=== PATIENT | male | born 1950 | race Caucasian/White ===

== ENCOUNTER 2017-07-27 00:21 | Day surgery (SDC) | payer BC, MEDICARE ==
[~2017-07-27 00:21] MED LIST: ACET325 PO; AMLO10 PO; ARIP10 PO; BUPR150ER; CIPR500 PO; DOCU100 PO; Diflucan100 MG PO; ESCI10 PO; ESOM20 PO; FLUO10 PO; FLUT.05NI; GEMF600 PO; LAVAP17G PO; MELO7.5 PO; METF500 PO; METO25ER PO; NAPR500 PO; Norco 7.5-3251 EACH PO; PANT40 PO; PARO25 PO; PROC10 PO; Prednisone20 MG PO; QVAR7.3 G1 IH; SERT100 PO; TRAZ100 PO; [UNRECOGNIZED DRUG - OTHER] IV
== END 2017-07-27 17:46 | disposition home or self-care (01) ==
LOC: ATC 00:21
DX: G58.7 Mononeuritis multiplex (principal); M66.822 Spontaneous rupture of other tendons, left upper arm
CPT/HCPCS: 96365; 96366

== ENCOUNTER 2017-08-28 00:49 | Day surgery (SDC) | payer BC, MEDICARE | END 2017-08-28 17:30 | disposition home or self-care (01) | LOC: ATC 00:49 | DX: G58.7 Mononeuritis multiplex (principal) | CPT/HCPCS: 96365; 96366 ==

== ENCOUNTER 2017-09-25 00:42 | Day surgery (SDC) | payer BC, MEDICARE | END 2017-09-25 17:05 | disposition home or self-care (01) | LOC: ATC 00:42 | DX: G58.7 Mononeuritis multiplex (principal) | CPT/HCPCS: 96365; 96366 ==

== ENCOUNTER 2017-11-23 00:08 | Day surgery (SDC) | payer BC, MEDICARE | END 2017-11-23 17:36 | disposition home or self-care (01) | LOC: ATC 00:08 | DX: G58.7 Mononeuritis multiplex (principal); M66.822 Spontaneous rupture of other tendons, left upper arm | CPT/HCPCS: 96365; 96366 ==

== ENCOUNTER 2017-12-25 00:09 | Day surgery (SDC) | payer BC, MEDICARE | END 2017-12-25 17:30 | disposition home or self-care (01) | LOC: ATC 00:09 | DX: G58.7 Mononeuritis multiplex (principal); M66.822 Spontaneous rupture of other tendons, left upper arm | CPT/HCPCS: 96365; 96366 ==

== ENCOUNTER 2018-04-09 00:24 | Day surgery (SDC) | payer BC, MEDICARE | END 2018-04-09 18:10 | disposition home or self-care (01) | LOC: ATC 00:24 | DX: G61.81 Chronic inflammatory demyelinating polyneuritis (principal) | CPT/HCPCS: 96365; 96366; Q0163 ==

== ENCOUNTER 2018-07-16 01:28 | Day surgery (SDC) | payer BC | END 2018-07-16 17:35 | disposition home or self-care (01) | LOC: ATC 01:28 | DX: G58.7 Mononeuritis multiplex (principal); G61.81 Chronic inflammatory demyelinating polyneuritis | CPT/HCPCS: 96365; 96366; J1200; J2405; Q0163 ==

== ENCOUNTER 2018-08-06 00:55 | Day surgery (SDC) | payer BC, MEDICARE | END 2018-08-06 17:42 | disposition home or self-care (01) | LOC: ATC 00:55 | DX: G58.7 Mononeuritis multiplex (principal); G61.81 Chronic inflammatory demyelinating polyneuritis | CPT/HCPCS: 96365; 96366; 96375; J2405 ==

== ENCOUNTER 2018-08-27 00:03 | Day surgery (SDC) | payer BC, MEDICARE | END 2018-08-27 17:37 | disposition home or self-care (01) | LOC: ATC 00:03 | DX: G58.7 Mononeuritis multiplex (principal); G61.81 Chronic inflammatory demyelinating polyneuritis | CPT/HCPCS: 96365; 96366; 96375; J2405 ==

== ENCOUNTER 2018-09-24 08:11 | Day surgery (SDC) | payer BC, MEDICARE | END 2018-09-24 18:30 | disposition home or self-care (01) | LOC: ATC 08:11 | DX: G58.7 Mononeuritis multiplex (principal); G61.81 Chronic inflammatory demyelinating polyneuritis; I10 Essential (primary) hypertension; F32.9 Major depressive disorder, single episode, unspecified; J45.909 Unspecified asthma, uncomplicated; G47.33 Obstructive sleep apnea (adult) (pediatric); Z79.899 Other long term (current) drug therapy; Z88.8 Allergy status to other drugs, medicaments and biological substances; Z88.1 Allergy status to other antibiotic agents; Z99.89 Dependence on other enabling machines and devices; Z51.81 Encounter for therapeutic drug level monitoring | CPT/HCPCS: 96365; 96366; 96375; J2405 ==

== ENCOUNTER 2018-11-05 00:18 | Day surgery (SDC) | payer BC, MEDICARE | END 2018-11-05 17:44 | disposition home or self-care (01) | LOC: ATC 00:18 | DX: G58.7 Mononeuritis multiplex (principal); G61.81 Chronic inflammatory demyelinating polyneuritis; I10 Essential (primary) hypertension; J45.909 Unspecified asthma, uncomplicated; F32.9 Major depressive disorder, single episode, unspecified; G47.33 Obstructive sleep apnea (adult) (pediatric); Z79.899 Other long term (current) drug therapy; Z88.8 Allergy status to other drugs, medicaments and biological substances; Z88.1 Allergy status to other antibiotic agents; Z99.89 Dependence on other enabling machines and devices | CPT/HCPCS: 96365; 96366; 96375; J2405 ==

== ENCOUNTER 2018-12-01 13:34 | Day surgery (SDC) | payer BC, MEDICARE | END 2018-12-01 18:30 | disposition home or self-care (01) | LOC: ATC 13:34 | DX: G58.7 Mononeuritis multiplex (principal); G61.81 Chronic inflammatory demyelinating polyneuritis; I10 Essential (primary) hypertension; G47.33 Obstructive sleep apnea (adult) (pediatric); J45.909 Unspecified asthma, uncomplicated; Z88.8 Allergy status to other drugs, medicaments and biological substances; Z88.1 Allergy status to other antibiotic agents | CPT/HCPCS: J2405 ==

== ENCOUNTER 2019-01-07 14:08 | Day surgery (SDC) | payer BC, MEDICARE | END 2019-01-07 23:17 | disposition home or self-care (01) | LOC: ATC 14:08 | DX: G58.7 Mononeuritis multiplex (principal); G61.81 Chronic inflammatory demyelinating polyneuritis; I10 Essential (primary) hypertension; G47.30 Sleep apnea, unspecified; Z88.0 Allergy status to penicillin; Z88.8 Allergy status to other drugs, medicaments and biological substances | CPT/HCPCS: 96365; 96366; A9270; J1100; J2930; Q0163 ==

== ENCOUNTER 2019-01-28 00:56 | Day surgery (SDC) | payer BC, MEDICARE | END 2019-01-28 23:45 | disposition home or self-care (01) | LOC: ATC 00:56 | DX: G58.7 Mononeuritis multiplex (principal); G61.81 Chronic inflammatory demyelinating polyneuritis; I10 Essential (primary) hypertension; G47.33 Obstructive sleep apnea (adult) (pediatric); F32.9 Major depressive disorder, single episode, unspecified; Z79.899 Other long term (current) drug therapy; Z79.891 Long term (current) use of opiate analgesic; Z79.51 Long term (current) use of inhaled steroids; Z88.8 Allergy status to other drugs, medicaments and biological substances; H02.401 Unspecified ptosis of right eyelid | CPT/HCPCS: 96365; 96366; 96375; A9270; J1100; J1568; Q0163 ==

== ENCOUNTER 2019-02-18 00:23 | Day surgery (SDC) | payer BC, MEDICARE | END 2019-02-18 17:58 | disposition home or self-care (01) | LOC: ATC 00:23 | DX: G58.7 Mononeuritis multiplex (principal); G61.81 Chronic inflammatory demyelinating polyneuritis; I10 Essential (primary) hypertension; J45.909 Unspecified asthma, uncomplicated; F32.9 Major depressive disorder, single episode, unspecified; G47.33 Obstructive sleep apnea (adult) (pediatric); Z99.89 Dependence on other enabling machines and devices; Z88.8 Allergy status to other drugs, medicaments and biological substances; Z79.899 Other long term (current) drug therapy; Z88.1 Allergy status to other antibiotic agents | CPT/HCPCS: 96365; 96366; A9270; J1100; Q0163 ==

== ENCOUNTER 2019-03-10 00:04 | Day surgery (SDC) | payer BC, MEDICARE ==
[2019-03-10] MEDS ORDERED: OLAN5 PO (14:01)
== END 2019-03-10 17:55 | disposition home or self-care (01) ==
LOC: ATC 00:04
DX: G58.7 Mononeuritis multiplex (principal); G61.81 Chronic inflammatory demyelinating polyneuritis; I10 Essential (primary) hypertension; J45.909 Unspecified asthma, uncomplicated; Z88.8 Allergy status to other drugs, medicaments and biological substances; Z88.1 Allergy status to other antibiotic agents; Z79.899 Other long term (current) drug therapy; Z79.51 Long term (current) use of inhaled steroids
CPT/HCPCS: 96365; 96366; 96375; A9270; J1100; J1642; Q0163

== ENCOUNTER 2019-04-01 00:40 | Day surgery (SDC) | payer BC, MEDICARE ==
[~2019-04-01 00:40] MED LIST changes: +OLAN5 PO
== END 2019-04-01 17:44 | disposition home or self-care (01) ==
LOC: ATC 00:40
DX: G58.7 Mononeuritis multiplex (principal); G61.81 Chronic inflammatory demyelinating polyneuritis; I10 Essential (primary) hypertension; F17.210 Nicotine dependence, cigarettes, uncomplicated; Z88.8 Allergy status to other drugs, medicaments and biological substances; Z88.1 Allergy status to other antibiotic agents
CPT/HCPCS: 96365; 96366; 96375; A9270; J1100; J1200

== ENCOUNTER 2019-04-22 00:38 | Day surgery (SDC) | payer BC, MEDICARE | END 2019-04-22 15:38 | disposition home or self-care (01) | LOC: ATC 00:38 | DX: G58.7 Mononeuritis multiplex (principal); G61.81 Chronic inflammatory demyelinating polyneuritis; J45.909 Unspecified asthma, uncomplicated; I10 Essential (primary) hypertension; G47.33 Obstructive sleep apnea (adult) (pediatric); M54.16 Radiculopathy, lumbar region; F43.21 Adjustment disorder with depressed mood; Z99.89 Dependence on other enabling machines and devices; Z79.899 Other long term (current) drug therapy; Z88.8 Allergy status to other drugs, medicaments and biological substances; Z88.1 Allergy status to other antibiotic agents | CPT/HCPCS: 96365; 96366; 96375; A9270; J2930; Q0163 ==

== ENCOUNTER 2019-05-13 00:22 | Day surgery (SDC) | payer BC, MEDICARE | END 2019-05-13 18:14 | disposition home or self-care (01) | LOC: ATC 00:22 | DX: G58.7 Mononeuritis multiplex (principal); G61.81 Chronic inflammatory demyelinating polyneuritis; J45.909 Unspecified asthma, uncomplicated; F32.9 Major depressive disorder, single episode, unspecified; I10 Essential (primary) hypertension; G47.33 Obstructive sleep apnea (adult) (pediatric); Z79.1 Long term (current) use of non-steroidal anti-inflammatories (NSAID); Z79.51 Long term (current) use of inhaled steroids; Z79.899 Other long term (current) drug therapy; Z99.89 Dependence on other enabling machines and devices; Z88.1 Allergy status to other antibiotic agents; Z88.8 Allergy status to other drugs, medicaments and biological substances | CPT/HCPCS: 96365; 96366; 96375; A9270; J1200; J2930; Q0163 ==

== ENCOUNTER 2019-06-27 00:13 | Day surgery (SDC) | payer BC, MEDICARE | END 2019-06-27 18:00 | disposition home or self-care (01) | LOC: ATC 00:13 | DX: G58.7 Mononeuritis multiplex (principal); G61.81 Chronic inflammatory demyelinating polyneuritis; J45.909 Unspecified asthma, uncomplicated; F32.9 Major depressive disorder, single episode, unspecified; I10 Essential (primary) hypertension; G47.33 Obstructive sleep apnea (adult) (pediatric); G62.9 Polyneuropathy, unspecified; Z79.51 Long term (current) use of inhaled steroids; Z79.899 Other long term (current) drug therapy; Z88.1 Allergy status to other antibiotic agents; Z88.8 Allergy status to other drugs, medicaments and biological substances | CPT/HCPCS: 96365; 96366; 96375; A9270; J1100; Q0163 ==

== ENCOUNTER 2019-07-18 00:13 | Day surgery (SDC) | payer BC, MEDICARE | END 2019-07-18 22:42 | disposition home or self-care (01) | LOC: ATC 00:13 | DX: G61.81 Chronic inflammatory demyelinating polyneuritis (principal); G58.7 Mononeuritis multiplex; J45.909 Unspecified asthma, uncomplicated; I10 Essential (primary) hypertension; F32.9 Major depressive disorder, single episode, unspecified; G47.33 Obstructive sleep apnea (adult) (pediatric); G62.9 Polyneuropathy, unspecified; R26.0 Ataxic gait; Z99.89 Dependence on other enabling machines and devices; Z79.899 Other long term (current) drug therapy; Z79.51 Long term (current) use of inhaled steroids; Z88.1 Allergy status to other antibiotic agents; Z88.8 Allergy status to other drugs, medicaments and biological substances | CPT/HCPCS: J1100 ==

== ENCOUNTER 2019-07-22 01:01 | Day surgery (SDC) | payer BC, MEDICARE ==
[2019-07-22] MEDS ORDERED: ACET325 PO (14:31)
[2019-07-22] MEDS ORDERED: BENADRYL25 MG PO (14:31)
[2019-07-22] MEDS ORDERED: DEXA4 IV (14:33)
== END 2019-07-22 23:22 | disposition home or self-care (01) ==
LOC: ATC 01:01
DX: G58.7 Mononeuritis multiplex (principal); G61.81 Chronic inflammatory demyelinating polyneuritis; J45.909 Unspecified asthma, uncomplicated; I10 Essential (primary) hypertension; G47.33 Obstructive sleep apnea (adult) (pediatric); F32.9 Major depressive disorder, single episode, unspecified; G62.89 Other specified polyneuropathies; Z79.51 Long term (current) use of inhaled steroids; Z79.899 Other long term (current) drug therapy; Z88.1 Allergy status to other antibiotic agents; Z88.8 Allergy status to other drugs, medicaments and biological substances; Z99.89 Dependence on other enabling machines and devices
CPT/HCPCS: 96365; 96366; 96375; A9270; J1100; Q0163

== ENCOUNTER 2019-09-07 00:08 | Day surgery (SDC) | payer BC, MEDICARE ==
[~2019-09-07 00:08] MED LIST changes: +BENADRYL25 MG PO; +DEXA4 IV
== END 2019-09-07 22:52 | disposition home or self-care (01) ==
LOC: ATC 00:08
DX: G58.7 Mononeuritis multiplex (principal); I10 Essential (primary) hypertension; G47.33 Obstructive sleep apnea (adult) (pediatric); J45.909 Unspecified asthma, uncomplicated; F43.21 Adjustment disorder with depressed mood; G61.81 Chronic inflammatory demyelinating polyneuritis; Z88.1 Allergy status to other antibiotic agents; Z88.8 Allergy status to other drugs, medicaments and biological substances; Z79.899 Other long term (current) drug therapy; H02.401 Unspecified ptosis of right eyelid; M54.16 Radiculopathy, lumbar region; A92.32 West Nile virus infection with other neurologic manifestation; G25.3 Myoclonus

== ENCOUNTER 2019-09-20 00:06 | Day surgery (SDC) | payer BC, MEDICARE | END 2019-09-20 22:52 | disposition home or self-care (01) | LOC: ATC 00:06 | DX: G58.7 Mononeuritis multiplex (principal); G61.81 Chronic inflammatory demyelinating polyneuritis; F43.21 Adjustment disorder with depressed mood; H02.401 Unspecified ptosis of right eyelid; I10 Essential (primary) hypertension; M54.16 Radiculopathy, lumbar region; G25.3 Myoclonus; R26.0 Ataxic gait; F17.210 Nicotine dependence, cigarettes, uncomplicated; J45.909 Unspecified asthma, uncomplicated; F32.9 Major depressive disorder, single episode, unspecified; Z79.899 Other long term (current) drug therapy; Z88.8 Allergy status to other drugs, medicaments and biological substances; Z88.1 Allergy status to other antibiotic agents | CPT/HCPCS: 96365; 96366; A9270; J2930; Q0163 ==

== ENCOUNTER 2019-11-09 00:06 | Day surgery (SDC) | payer BC, MEDICARE | END 2019-11-09 22:57 | LOC: ATC 00:06 | DX: G58.7 Mononeuritis multiplex (principal); J45.909 Unspecified asthma, uncomplicated; F32.9 Major depressive disorder, single episode, unspecified; G47.33 Obstructive sleep apnea (adult) (pediatric); I10 Essential (primary) hypertension; Z79.899 Other long term (current) drug therapy; Z88.8 Allergy status to other drugs, medicaments and biological substances; Z88.1 Allergy status to other antibiotic agents; Z51.81 Encounter for therapeutic drug level monitoring; G61.81 Chronic inflammatory demyelinating polyneuritis; H02.401 Unspecified ptosis of right eyelid; A92.32 West Nile virus infection with other neurologic manifestation; G25.3 Myoclonus ==

== ENCOUNTER 2019-11-23 00:07 | Day surgery (SDC) | payer BC, MEDICARE | END 2019-11-23 17:35 | LOC: ATC 00:07 | DX: G58.7 Mononeuritis multiplex (principal); G61.81 Chronic inflammatory demyelinating polyneuritis; F43.21 Adjustment disorder with depressed mood; H02.401 Unspecified ptosis of right eyelid; M54.16 Radiculopathy, lumbar region; A92.32 West Nile virus infection with other neurologic manifestation; G25.3 Myoclonus; Z79.899 Other long term (current) drug therapy; Z88.1 Allergy status to other antibiotic agents; Z88.8 Allergy status to other drugs, medicaments and biological substances; J45.909 Unspecified asthma, uncomplicated; I10 Essential (primary) hypertension; F32.9 Major depressive disorder, single episode, unspecified | CPT/HCPCS: A9270; J1100; J2930; Q0163 ==

== ENCOUNTER 2019-12-14 00:11 | Day surgery (SDC) | payer BC, MEDICARE | END 2019-12-14 18:17 | disposition home or self-care (01) | LOC: ATC 00:11 | DX: G58.7 Mononeuritis multiplex (principal); J45.909 Unspecified asthma, uncomplicated; I10 Essential (primary) hypertension; F32.9 Major depressive disorder, single episode, unspecified; Z79.899 Other long term (current) drug therapy; Z88.8 Allergy status to other drugs, medicaments and biological substances; Z88.1 Allergy status to other antibiotic agents | CPT/HCPCS: 96365; 96366; 96375; A9270; J1200; J2930; Q0163 ==

== ENCOUNTER 2020-02-27 00:17 | Day surgery (SDC) | payer BC, MEDICARE ==
[~2020-02-27 00:17] MED LIST changes: +GAMMAGARD LIQUI IV; -LAVAP17G PO; +MIRALAX17 GM PO; +QVAR REDIHALE10.6 G2 INH; -QVAR7.3 G1 IH; -[UNRECOGNIZED DRUG - OTHER] IV
== END 2020-02-27 16:57 | disposition home or self-care (01) ==
LOC: ATC 00:17
DX: G58.7 Mononeuritis multiplex (principal); J45.909 Unspecified asthma, uncomplicated; F32.9 Major depressive disorder, single episode, unspecified; G47.33 Obstructive sleep apnea (adult) (pediatric); Z79.899 Other long term (current) drug therapy; Z88.1 Allergy status to other antibiotic agents; Z88.8 Allergy status to other drugs, medicaments and biological substances
CPT/HCPCS: 96365; 96366; A9270; Q0163

== ENCOUNTER 2020-03-28 00:26 | Day surgery (SDC) | payer BC, MEDICARE | END 2020-03-28 16:55 | disposition home or self-care (01) | LOC: ATC 00:26 | DX: G58.7 Mononeuritis multiplex (principal); J45.909 Unspecified asthma, uncomplicated; I10 Essential (primary) hypertension; H02.402 Unspecified ptosis of left eyelid; F43.21 Adjustment disorder with depressed mood; G61.81 Chronic inflammatory demyelinating polyneuritis; A92.32 West Nile virus infection with other neurologic manifestation; Z88.8 Allergy status to other drugs, medicaments and biological substances; Z88.1 Allergy status to other antibiotic agents; Z79.899 Other long term (current) drug therapy | CPT/HCPCS: 96365; 96366; A9270; Q0163 ==

== ENCOUNTER 2020-04-25 00:41 | Day surgery (SDC) | payer BC, MEDICARE | END 2020-04-25 14:45 | disposition home or self-care (01) | LOC: ATC 00:41 | DX: G61.81 Chronic inflammatory demyelinating polyneuritis (principal); G58.7 Mononeuritis multiplex; H02.402 Unspecified ptosis of left eyelid; I10 Essential (primary) hypertension; J45.909 Unspecified asthma, uncomplicated; G62.9 Polyneuropathy, unspecified; F43.21 Adjustment disorder with depressed mood; G47.33 Obstructive sleep apnea (adult) (pediatric); Z79.51 Long term (current) use of inhaled steroids; Z79.899 Other long term (current) drug therapy; Z88.1 Allergy status to other antibiotic agents; Z88.8 Allergy status to other drugs, medicaments and biological substances; Z99.89 Dependence on other enabling machines and devices | CPT/HCPCS: 96365; A9270; Q0163 ==

== ENCOUNTER 2020-06-06 02:53 | Day surgery (SDC) | payer BC, MEDICARE | END 2020-06-06 16:55 | disposition home or self-care (01) | LOC: ATC 02:53 | DX: G58.7 Mononeuritis multiplex (principal); G61.81 Chronic inflammatory demyelinating polyneuritis; J45.909 Unspecified asthma, uncomplicated; F32.9 Major depressive disorder, single episode, unspecified; G47.33 Obstructive sleep apnea (adult) (pediatric); G62.9 Polyneuropathy, unspecified; F43.21 Adjustment disorder with depressed mood; Z79.51 Long term (current) use of inhaled steroids; Z79.899 Other long term (current) drug therapy; Z88.1 Allergy status to other antibiotic agents; Z88.8 Allergy status to other drugs, medicaments and biological substances | CPT/HCPCS: 96365; 96366; A9270; Q0163 ==

== ENCOUNTER 2020-07-04 05:48 | Day surgery (SDC) | payer BC, MEDICARE ==
--- NOTE | 2020-07-04 13:55 | NUR ---
PT DECLINES IV SOLUMEDROL.
== END 2020-07-04 16:45 | disposition home or self-care (01) ==
LOC: ATC 05:48
DX: G58.7 Mononeuritis multiplex (principal); H02.401 Unspecified ptosis of right eyelid; F43.21 Adjustment disorder with depressed mood; G52.9 Cranial nerve disorder, unspecified; A92.32 West Nile virus infection with other neurologic manifestation; J45.909 Unspecified asthma, uncomplicated; G47.33 Obstructive sleep apnea (adult) (pediatric); G62.9 Polyneuropathy, unspecified; Z79.1 Long term (current) use of non-steroidal anti-inflammatories (NSAID); Z79.51 Long term (current) use of inhaled steroids; Z79.899 Other long term (current) drug therapy; Z88.1 Allergy status to other antibiotic agents; Z88.8 Allergy status to other drugs, medicaments and biological substances
CPT/HCPCS: 96365; 96366; A9270; Q0163

== ENCOUNTER 2020-08-27 00:23 | Day surgery (SDC) | payer BC, MEDICARE | END 2020-08-27 16:46 | disposition home or self-care (01) | LOC: ATC 00:23 | DX: G58.7 Mononeuritis multiplex (principal); Z88.8 Allergy status to other drugs, medicaments and biological substances; Z88.1 Allergy status to other antibiotic agents; Z79.899 Other long term (current) drug therapy | CPT/HCPCS: 96365; 96366; A9270; J1100 ==

== ENCOUNTER 2020-09-26 00:31 | Day surgery (SDC) | payer BC, MEDICARE | END 2020-09-26 16:50 | disposition home or self-care (01) | LOC: ATC 00:31 | DX: G58.7 Mononeuritis multiplex (principal); J45.909 Unspecified asthma, uncomplicated; I10 Essential (primary) hypertension; G47.33 Obstructive sleep apnea (adult) (pediatric); E66.9 Obesity, unspecified; F43.21 Adjustment disorder with depressed mood; Z88.8 Allergy status to other drugs, medicaments and biological substances; Z88.1 Allergy status to other antibiotic agents; Z68.31 Body mass index [BMI] 31.0-31.9, adult; Z79.899 Other long term (current) drug therapy | CPT/HCPCS: 96365; 96366; A9270 ==

== ENCOUNTER 2020-11-14 00:56 | Day surgery (SDC) | payer BC, MEDICARE ==
--- NOTE | 2020-11-07 14:01 | NUR ---
PT CALLED AN CANCELLED HIS APPOINTMENT IN THE [facility] TODAY.
[~2020-11-14] VITALS: Wt 117.9 kg
== END 2020-11-14 17:18 | disposition home or self-care (01) ==
LOC: ATC 00:56
DX: G58.7 Mononeuritis multiplex (principal); Z88.1 Allergy status to other antibiotic agents; Z88.8 Allergy status to other drugs, medicaments and biological substances; J45.909 Unspecified asthma, uncomplicated; I10 Essential (primary) hypertension; G47.33 Obstructive sleep apnea (adult) (pediatric)
CPT/HCPCS: 96365; 96366; A9270

== ENCOUNTER 2020-12-28 04:55 | Day surgery (SDC) | payer BC, MEDICARE ==
[~2020-12-28] VITALS: Wt 115.4 kg
== END 2020-12-28 16:46 | disposition home or self-care (01) ==
LOC: ATC 04:55
DX: G58.7 Mononeuritis multiplex (principal); I10 Essential (primary) hypertension; J45.909 Unspecified asthma, uncomplicated; Z88.8 Allergy status to other drugs, medicaments and biological substances; Z88.1 Allergy status to other antibiotic agents; Z79.899 Other long term (current) drug therapy
CPT/HCPCS: 96365; 96366; 96375; A9270; J1100

== ENCOUNTER 2021-02-13 01:02 | Day surgery (SDC) | payer BC, MEDICARE ==
[~2021-02-13] VITALS: Wt 115.2 kg
== END 2021-02-13 23:07 | disposition home or self-care (01) ==
LOC: ATC 01:02
DX: G58.7 Mononeuritis multiplex (principal)
CPT/HCPCS: 96365; 96366; 96375; A9270; J1100; J1200

== ENCOUNTER 2021-04-12 00:14 | Day surgery (SDC) | payer BC, MEDICARE ==
[~2021-04-12] VITALS: Wt 117.2 kg
== END 2021-04-12 16:50 | disposition home or self-care (01) ==
LOC: ATC 00:14
DX: G58.7 Mononeuritis multiplex (principal)
CPT/HCPCS: 96365; 96366; 96375; A9270; J1100

== ENCOUNTER 2021-05-08 17:33 | Inpatient (IN) | payer BC, MEDICARE ==
[~2021-05-08] VITALS: Ht 190.5 cm; Wt 111.5 kg
[~2021-05-08 17:33] MED LIST changes: +ABILIFY MYCITE2 M2 PO; -ARIP10 PO; +PARO20 PO
[2021-05-08 18:09] LABS: BASOPHILS ABSOLUTE AUTO 0.16 K/mm3 (0.00-0.23); BASOPHILS PERCENT AUTO 1 % (0-2); EOSINOPHILS ABSOLUTE AUTO 0.25 K/mm3 (0.00-0.68); EOSINOPHILS PERCENT AUTO 2 % (0-6); Hematocrit 47.9 % (37.0-53.0); Hemoglobin 15.4 g/dL (13.5-17.5); IMMATURE GRAN ABSOLUTE AUTO 0.19 K/mm3 (0.00-0.10); IMMATURE GRAN PERCENT AUTO 1 % (0-1); LYMPHOCYTES ABSOLUTE AUTO 6.77 K/mm3 (0.84-5.20); LYMPHOCYTES PERCENT AUTO 49 % (21-46); MONOCYTES ABSOLUTE AUTO 1.18 K/mm3 (0.16-1.47); MONOCYTES PERCENT AUTO 9 % (4-13); Mean Corpuscular HGB 29.1 pg (26.0-34.0); Mean Corpuscular HGB Conc 32.2 g/dL (31.5-36.5); Mean Corpuscular Volume 91 fL (80-100); Mean Platelet Volume 10.3 fL (9.1-12.4); NEUTROPHILS ABSOLUTE AUTO 5.18 K/mm3 (1.96-9.15); NEUTROPHILS PERCENT AUTO 38 % (41-73); Platelet Count 283 K/mm3 (150-400); RDW Coefficient Variation 13.8 % (11.7-14.2); RDW Standard Deviation 46.2 fL (35.1-46.3); Red Blood Cell Count 5.29 M/mm3 (4.30-5.90); White Blood Cell Count 13.73 K/mm3 (4.00-11.30)
[2021-05-08] MEDS ORDERED: Nexium40 MG PO (18:12)
[2021-05-08] MEDS ORDERED: NAPROXEN500 MG PO (18:12)
[2021-05-08] MEDS ORDERED: DEPO-TESTO200 MG/1 M (18:13)
[2021-05-08 18:27] LABS: PCO2 Arterial 104 mmHg (35-45); PO2 Arterial 87.2 mmHg (80-100); pH Blood Arterial 6.93 (7.35-7.45)
[2021-05-08 18:29] LABS: Alanine Aminotransfer (ALT/SGP 14 U/L (12-78); Albumin, Blood 3.2 g/dL (3.4-5.0); Albumin/Globulin Ratio 0.6 (0.8-1.8); Alk Phos 81 U/L (50-136); Anion Gap 15 mmol/L (6-16); Aspartate Aminotrans (AST/SGOT 33 U/L (12-37); Bilirubin, Total 0.7 mg/dL (0.1-1.0); Blood Urea Nitrogen 17 mg/dL (8-24); CO2, Blood 16 mmol/L (21-32); Calcium, Blood 9.3 mg/dL (8.5-10.1); Chloride, Blood 106 mmol/L (98-108); Creatinine, Blood 1.21 mg/dL (0.60-1.20); Globulin, Blood 5.5 g/dL (2.2-4.0); Glomerular Filtration Rate 59 (60-); Glucose, Blood 252 mg/dL (70-99); Potassium, Blood 3.5 mmol/L (3.5-5.5); Sodium, Blood 137 mmol/L (136-145); Total Protein, Blood 8.7 g/dL (6.4-8.2); Troponin I 0.038 ng/mL (0.000-0.040)
[2021-05-08 18:35] LABS: Chloride (POC) 103 mmol/L (98-108); Creatinine (POC) 1.2 mg/dL (0.8-1.3); Glucose (ISTAT POC) 250 mg/dL (70-99); Hemoglobin (POC) 16.3 g/dL (13.5-17.5); Potassium (POC) 3.2 mmol/L (3.5-5.5); Sodium (POC) 140 mmol/L (135-148); Total CO2 (POC) 20 mmol/L (21-32)
[2021-05-08 18:39] LABS: Source, Urine Catheter
[2021-05-08 18:41] LABS: Magnesium, Blood 2.8 mg/dL (1.6-2.4)
[2021-05-08 18:43] LABS: Thyroid Stimulating Hormone 0.673 uIU/mL (0.360-4.800)
[2021-05-08 18:44] LABS: Appearance, Urine Cloudy (Clear); Bilirubin, Urine Neg (Neg); Blood, Urine 4+ (Neg); Color, Urine Yellow (P-Yellow); Glucose Qualitative, Urine 2+ (Neg); Ketones, Urine 1+ (Neg); Leukocyte Esterase, Urine Neg (Neg); Nitrite, Urine Neg (Neg); Protein, Urine 4+ (Neg); Specific Gravity, Urine 1.025 (1.003-1.022); Urobilinogen, Urine 1+ (Normal)
[2021-05-08 18:45] LABS: D-Dimer, Quantitative 34.14 mg/L FEU (0.00-0.52); International Normalized Ratio 1.06; Prothrombin Time Results 11.1 Sec (9.7-11.5)
[2021-05-08 18:54] LABS: Bacteria Many /hpf; Red Blood Cells, Urine TNTC /hpf (0-2); Renal Epithelial Few /hpf (0-Rare); Squamous Epithelial Cells Mod /hpf (Few); Transitional Epithelial Cells Few /hpf (0-Rare)
[2021-05-08 19:02] LABS: Influenza A, PCR NEGATIVE (NEGATIVE); Influenza B, PCR NEGATIVE (NEGATIVE); Resp Syncytial Virus, PCR NEGATIVE (NEGATIVE); SARS-Cov-2 (COVID-19) PCR, MMC NEGATIVE (NEGATIVE)
[2021-05-08 19:23] LABS: Bicarbonate Venous 15.6 mmol/L (24.0-30.0); PCO2 Venous 90.4 mmHg (38-42); PO2 Venous 68.1 mmHg (38-42)
[2021-05-08 20:00] LABS: Salicylate 1.9 mg/dL (2.8-20.0)
[2021-05-08 20:33] LABS: Acetaminophen, Random <2.0 ug/mL (10.0-30.0)
[2021-05-09 03:22] LABS: PCO2 Arterial 52.1 mmHg (35-45); PO2 Arterial 76.9 mmHg (80-100)
[2021-05-09 03:28] LABS: BASOPHILS ABSOLUTE AUTO 0.07 K/mm3 (0.00-0.23); BASOPHILS PERCENT AUTO 0 % (0-2); EOSINOPHILS ABSOLUTE AUTO 0.01 K/mm3 (0.00-0.68); EOSINOPHILS PERCENT AUTO 0 % (0-6); Hematocrit 42.1 % (37.0-53.0); IMMATURE GRAN ABSOLUTE AUTO 0.17 K/mm3 (0.00-0.10); IMMATURE GRAN PERCENT AUTO 1 % (0-1); LYMPHOCYTES ABSOLUTE AUTO 1.66 K/mm3 (0.84-5.20); LYMPHOCYTES PERCENT AUTO 8 % (21-46); MONOCYTES ABSOLUTE AUTO 2.01 K/mm3 (0.16-1.47); MONOCYTES PERCENT AUTO 9 % (4-13); Mean Corpuscular HGB 29.3 pg (26.0-34.0); Mean Corpuscular HGB Conc 33.3 g/dL (31.5-36.5); Mean Corpuscular Volume 88 fL (80-100); Mean Platelet Volume 9.3 fL (9.1-12.4); NEUTROPHILS ABSOLUTE AUTO 18.33 K/mm3 (1.96-9.15); NEUTROPHILS PERCENT AUTO 82 % (41-73); Platelet Count 239 K/mm3 (150-400); RDW Coefficient Variation 14.1 % (11.7-14.2); RDW Standard Deviation 46.1 fL (35.1-46.3); Red Blood Cell Count 4.78 M/mm3 (4.30-5.90); White Blood Cell Count 22.25 K/mm3 (4.00-11.30)
[2021-05-09 04:01] LABS: Albumin, Blood 2.8 g/dL (3.4-5.0); Albumin/Globulin Ratio 0.6 (0.8-1.8); Bilirubin, Total 0.6 mg/dL (0.1-1.0); Calcium, Blood 8.1 mg/dL (8.5-10.1); Globulin, Blood 4.6 g/dL (2.2-4.0); Magnesium, Blood 2.6 mg/dL (1.6-2.4); Potassium, Blood 5.1 mmol/L (3.5-5.5); Total Protein, Blood 7.4 g/dL (6.4-8.2)
[2021-05-09 04:19] LABS: Troponin I 7.39 ng/mL (0.000-0.040)
[2021-05-09] MEDS ORDERED: MIRT30 PO (04:49)
--- NOTE | 2021-05-09 06:12 | NUR ---
SHIFT SUMMARY PT ARRIVED TO ICU FROM ED INTUBATED AND SEDATED. TX TO BED VIA SLIDER SHEET. UPON ARRIVAL PTS O2 SATURATIONS WERE IN THE HIGH 80'S TO LOW 90'S ON 100% FIO2 AND MAP <65. DR HANEY IN ROOM SHORTLY AFTER ARRIVAL. DECISION MADE TO PROCEED TO FLUE BLOWER. WHILE AWAITING CATH TEAM ARRIVAL, DR CHASE INSERTED RIJ CENTRAL LINE. PT TRANSPORTED TO FLUE BLOWER @ 2345. RETURNED TO ICU c R FLORAL DESIGN TEACHER ART LINE, R CFV ACCESS, AND BILATERAL UNIFUSE 5FR INFUSION CATHETERS. SHORTLY AFTER RETURN PT BEGAN HAVING FREQUENT PVC'S. DR HANEY AND DR CHAES NOTIFIED. STAT C-XRAY PERFORMED TO CONFIRM CATHETER PLACEMENT. DR CHASE ADMINISTERED 5MG TPA PUSH PER EACH INFUSION LINE, FOLLOWED BY TPA DRIP STARTING @ 1MG/HR FOR 3HRS, THEN 0.5MG/HR FOR 9HRS IN EACH INFUSION LINE. QUICKLY AFTER TPA PUSHES PTS ECTOPY DECREASED. HEPARIN RATE CHANGED TO 500U/HR VIA FEMORAL VENOUS ACCESS. PER DR CHASE HEPARIN TO INFUSE UNTIL BILATERAL TPA IS COMPLETE. PT REMAINED HYPOTENSIVE AFTER FLUE BLOWER, LEVOPHED TITRATED UP TO 18MCG'S AND VASOPRESSIN INITIATED FOR LESS THAN 30 MINS. PT NOW ON 6MCG/MIN LEVO c MAP >65 VIA ART LINE. PROPOFOL CONTINUES @ 45. MEDICATED c ONE DOSE OF 50MCG OF FENTANYL, PT GRIMACING DURING NEURO ASSESSMENTS. VENT SETTINGS NOW-AC: 26/530/80%/ 7 c O2 SATS OF 99%. TEMP SALGADO CATH PATENT, DRAINING YELLOW URINE, AFEBRILE. WILL CONTINUE TO MONITOR CLOSELY, REPORT TO BE GIVEN TO ONCOMING NURSE. SPOUSE UPDATED BY THIS NURSE AND DR CHASE.
--- NOTE | 2021-05-09 08:15 | NUR ---
DR CHASE ROUNDED, REPORTED LACTIC ACID, LEVOPHED VASOPRESSIN HEPARIN AND TPA DOSAGE REPORTED, TROPONIN RESULT, OG REMOVED DUE TO PLACEMENT, OK TO REPLACE AFTER TPA AND HEPARIN DONE INFUSING, NO CHANGES ORDERED, NO DISTRESS, GRIMACES FROM PAIN AND VOICE, WCTM
--- NOTE | 2021-05-09 09:42 | NUR ---
ECHO IN ROOM DONE
--- NOTE | 2021-05-09 12:01 | NUR ---
Update 05/09/21: 71 YOM brought into ED by EMS with SOB. Admitted to ICU with massive saddle emboli. Thrombectomy this am. Significant improvements post-op noted in chart. NOK noted as Violet . Pt. living with in [place] prior to admit. Per chart EFM chart review, pt. was able to perform ADLs independently prior to admit.
[2021-05-09 13:42] LABS: PCO2 Arterial 44.7 mmHg (35-45); PO2 Arterial 54.2 mmHg (80-100); pH Blood Arterial 7.38 (7.35-7.45)
--- NOTE | 2021-05-09 16:17 | NUR ---
DR CHASE ROUNDED, INSTRUCTED TO STOP TPA AND CONTINUE TKO TO BOTH THE VENOUS AND ARTERIAL LINES ON RIGHT FEMORAL GROIN, DRSJulieta CDI, SMALL AMOUNT OF BLOOD, LINE TO BE PULLED BY DR CHASE LATER TODAY, PER DR CHASE NOT AN EMREGENT NEED PATIENT COULD WIAT TO AHVE IT PULLED UNTIL TOMORROW, TO USE A COLAGEN PLUG WHEN PULLED OUT TO REDUCE THE AMOUNT OF PRESSURE NEEDED ON THE AREA, ONCE THE LINE IS OUT
--- NOTE | 2021-05-09 18:26 | NUR ---
SEDATED AND VENTILATED, ARTERIAL AND VENOUS SHEALTH TO BE REMOVED BY DR SALVATORE ALEXANDER, TKO NSX3 INFUSING TO ARTERIAL AND VENOUS SITE, R IJ DRESSING CHANGED, ECHO DONE, NO RESULTS AVAILABLE PRESENTLY, GRIMACES AND WITHDRAWS FROM PAIN, OPENS EYE TO VOICE, TEMP 98.8-100.5 TODAY TEMP NOW 99.7, ICE PACKS AND FAN TO PATIENT, LS CLEAR DIMINSHED BASES, VENT ACNC 26/530/5/60%, HEART RATE 70-110S, NSR AND BIGEMINY, SALGADO TO GRAVITY OUTPUT 800 FOR THE DAY, ACTIVE BT, UHNKNOWN LAST BM, TROPONIN TRENDING DOWN LAST 4.17, UNABLE TO MAKE NEEDS KNOWN, ROM TO EXTREMITIES, WILL RELAY TO PM ADINA
--- NOTE | 2021-05-09 20:00 | NUR ---
ASSUMED CARE OF PT AT 1915. REPORT RECEIVED AT BEDSIDE. PT PRESENTS IN BED. INTUBATED - VENT: AC/VC 26, Tv 530, FIO2 60 PERCENT, PEEP 5. PT TOLERATING THIS WELL. PROPOFOL AT 60 MCG/KG/MIN, FENTANYL DRIP AT 50 MCG/HOUR. LEVOPHED AT 6 MCG'S/MIN. HEPARIN DRIP AT 15 UNIT/KG/HOUR. HAVE DECREASED PROPOFOL TO 55 MCG/KG/MIN AND LEVOPHED INCREASED TO 7 MCG'S/ MIN. ART LINE/SHEATH IN RIGHT GROIN. NO HEMATOMA OR OOZING NOTED. WILL REVIEW CHART AND PLAN OF CARE FOR THIS PT.
--- NOTE | 2021-05-10 04:00 | NUR ---
AFTER PT RECEIVED BEDBATH, HE BECOMES VERY AGITATED AND FIGHTING VENT. NONCOMPLIANT WITH VENT. PT HAS CUFF LEAK WHICH BECOMES POSITIONAL. RT TO ROOM. ADJUSTMENT IN ETT DONE. WITH EPISODE, PT TRENDED TOWARDS ABDOMINAL DISTENTION. PLACED OGT FOR LWS FOR DECOMPRESSION. DID OBTAIN ORDER FROM DR VELIZ FOR ATIVAN ONE TIME. THIS NOT AFFECTIVE. CALL MADE TO DR KAY. ORDER RECEIVED FOR NIMBEX DRIP.
[2021-05-10 05:47] LABS: BASOPHILS PERCENT AUTO 1 % (0-2); EOSINOPHILS ABSOLUTE AUTO 0.08 K/mm3 (0.00-0.68); EOSINOPHILS PERCENT AUTO 0 % (0-6); Hematocrit 36.6 % (37.0-53.0); Hemoglobin 12.3 g/dL (13.5-17.5); IMMATURE GRAN ABSOLUTE AUTO 0.13 K/mm3 (0.00-0.10); IMMATURE GRAN PERCENT AUTO 1 % (0-1); LYMPHOCYTES ABSOLUTE AUTO 2.73 K/mm3 (0.84-5.20); LYMPHOCYTES PERCENT AUTO 15 % (21-46); MONOCYTES ABSOLUTE AUTO 1.82 K/mm3 (0.16-1.47); MONOCYTES PERCENT AUTO 10 % (4-13); Mean Corpuscular HGB 29.1 pg (26.0-34.0); Mean Corpuscular HGB Conc 33.6 g/dL (31.5-36.5); Mean Corpuscular Volume 87 fL (80-100); Mean Platelet Volume 10.4 fL (9.1-12.4); NEUTROPHILS ABSOLUTE AUTO 12.97 K/mm3 (1.96-9.15); NEUTROPHILS PERCENT AUTO 73 % (41-73); Platelet Count 164 K/mm3 (150-400); RDW Coefficient Variation 14.2 % (11.7-14.2); Red Blood Cell Count 4.22 M/mm3 (4.30-5.90); White Blood Cell Count 17.83 K/mm3 (4.00-11.30)
[2021-05-10 06:14] LABS: Anion Gap 5 mmol/L (6-16); Blood Urea Nitrogen 12 mg/dL (8-24); Bun/Creatinine Ratio 11.7 (12.0-20.0); CO2, Blood 28 mmol/L (21-32); Calcium, Blood 8.1 mg/dL (8.5-10.1); Chloride, Blood 105 mmol/L (98-108); Creatinine, Blood 1.03 mg/dL (0.60-1.20); Glomerular Filtration Rate >60 (60-); Glucose, Blood 140 mg/dL (70-99); Potassium, Blood 3.5 mmol/L (3.5-5.5); Sodium, Blood 138 mmol/L (136-145)
--- NOTE | 2021-05-10 06:15 | NUR ---
CALL MADE TO PATIENT'S WITH UPDATE FROM THE NIGHT. INFORMED HER OF NEEDING NIMBEX DRIP, AND RATIONALE. ANSWERED QUESTIONS.
--- NOTE | 2021-05-10 06:39 | NUR ---
PT CONTINUES ON LEVOPHED AT 3 MCG'S/MIN. MAP REMAINS > 60. PROPOFOL HAS BEEN INCREASED TO 80 MCG'S/KG/MIN AND HAS BEEN BROUGHT BACK TO 75 MCG'S. BIS MONITORING AT 40-45. NIMBEX HAS BEEN TITRATED TO 2.5 MCG'S. CURRENTLY 100 PERCENT COMPLIANT WITH VENT. RIGHT GROIN SITE WNL NO FURTHER OOZING FROM VENOUS SITE. WILL CONTINUE TO MONITOR PT, AND WILL REPORT OFF TO ONCOMING RN.
--- NOTE | 2021-05-10 16:54 | NUR ---
PT STABLE, INTUBATED AND SEDATED PER DR. LAZARO WANTS NIMBEX OFF UNTIL PT WAKES UP TO EXAMINE. NIMBEX WAS STOP AT 1500
--- NOTE | 2021-05-10 17:32 | NUR ---
PT REMAINS INTUBATED AND SEDATED NEW VENT SETTINGS: ACVC 26/530/35%/PEEP 5 LEVO 2 HEPARIN 19 NIMBEX STANDBY TRAIN OF FOUR 3/4 AT 7
--- NOTE | 2021-05-10 20:00 | NUR ---
ASSUMED CARE OF PT AT 1915. REPORT RECEIVED AT BEDSIDE. PT PRESENTS IN BED. INTUBATED. TOLERATING THIS WELL AT THIS TIME. NIMBEX HAS BEEN ON STANDBY. BIS MONITOR ON [employer] NO PARALYTIC. BIS 40-50 CONSISTENTLY. RIGHT GROIN SITE WNL. NO S/S BLEEDING OR HEMATOMA. WILL REVIEW CHART AND PLAN OF CARE FOR THIS PT.
--- NOTE | 2021-05-10 22:30 | NUR ---
DR CHASE COMES IN TO SEE PT. NO NEW ORDERS RECEIVED. PT CONTINUES ON HEPARIN DRIP. LEVOPHED HAS BEEN DECREASED TO 1 MCG/MIN. PROPOFOL AT 75 MCG'S/KG/MIN. PT MAINTAINS SAS 3-4. PT'S CALLS FOR UPDATE. THIS DONE. ALLOWED FOR QUESTIONS. WILL CONTINUE TO MONITOR.
--- NOTE | 2021-05-10 23:46 | NUR ---
BEDBATH DONE FOR PT. PT TOLERATES THIS WELL WITHOUT DYSPNEA OR INCREASE IN AGITATION. HAVE PLACED LEVOPHED TO STANDBY. WILL MONITOR BLOOD PRESSURES. DISCUSSED WITH RESPIRATORY THERAPY DOING SPONTANEOUS BREATHING TRIAL IN AM. WILL CONTINUE TO MONITOR PT.
[2021-05-11 05:13] LABS: BASOPHILS ABSOLUTE AUTO 0.11 K/mm3 (0.00-0.23); BASOPHILS PERCENT AUTO 1 % (0-2); EOSINOPHILS ABSOLUTE AUTO 0.11 K/mm3 (0.00-0.68); EOSINOPHILS PERCENT AUTO 1 % (0-6); Hematocrit 29.9 % (37.0-53.0); Hemoglobin 10.1 g/dL (13.5-17.5); IMMATURE GRAN PERCENT AUTO 1 % (0-1); LYMPHOCYTES ABSOLUTE AUTO 2.16 K/mm3 (0.84-5.20); LYMPHOCYTES PERCENT AUTO 21 % (21-46); MONOCYTES ABSOLUTE AUTO 0.72 K/mm3 (0.16-1.47); MONOCYTES PERCENT AUTO 7 % (4-13); Mean Corpuscular HGB Conc 33.8 g/dL (31.5-36.5); Mean Corpuscular Volume 86 fL (80-100); Mean Platelet Volume 10.5 fL (9.1-12.4); NEUTROPHILS ABSOLUTE AUTO 7.23 K/mm3 (1.96-9.15); NEUTROPHILS PERCENT AUTO 69 % (41-73); Platelet Count 156 K/mm3 (150-400); RDW Coefficient Variation 14.5 % (11.7-14.2); RDW Standard Deviation 45.1 fL (35.1-46.3); Red Blood Cell Count 3.48 M/mm3 (4.30-5.90); White Blood Cell Count 10.43 K/mm3 (4.00-11.30)
[2021-05-11 05:32] LABS: Anion Gap 7 mmol/L (6-16); Blood Urea Nitrogen 10 mg/dL (8-24); Bun/Creatinine Ratio 10.6 (12.0-20.0); CO2, Blood 25 mmol/L (21-32); Calcium, Blood 7.8 mg/dL (8.5-10.1); Chloride, Blood 104 mmol/L (98-108); Creatinine, Blood 0.94 mg/dL (0.60-1.20); Glomerular Filtration Rate >60 (60-); Glucose, Blood 132 mg/dL (70-99); Magnesium, Blood 2.3 mg/dL (1.6-2.4); Phosphorus, Blood 2.5 mg/dL (2.5-4.9); Potassium, Blood 3.1 mmol/L (3.5-5.5); Sodium, Blood 136 mmol/L (136-145)
--- NOTE | 2021-05-11 06:48 | NUR ---
PT HAS WEAN TRIAL THIS AM. WITH SEDATION VACATION WITH SBT, PT BECOMES EXCESSIVELY ANXIOUS AND FIGHTING RESTRAINTS AND VENT. PT BECOMES VERY DIAPHORETIC WITHIN 5 MINUTES OF SBT, AND BLOOD PRESSURE RISES 170'-180'S. PT FAILED WEAN. PT BACK TO 60 MCG'S PROPOFOL. HAVE BEEN ABLE TO KEEP LEVOPHED OFF. BLOOD PRESSURES REMAIN WITH MAP > 65. WILL CONTINUE TO MONITOR PT, AND WILL REPORT OFF TO ONCOMING RN.
--- NOTE | 2021-05-11 13:03 | NUR ---
PT EXTUBATED AT 1300 BY RT, DR. LAZARO AWARE
--- NOTE | 2021-05-11 13:23 | NUR ---
CALLED PT (JOHAN) TO NOTIFY ABOUT PT EXTUBATED AND TO PLEASE BRING HIS CPAP MACHINE DIRECTED BY DR. LAZARO. PT REMAINS STABLE, PROPOFOL OFF. PT WAS PLACED ON A VENTURI MASK 55%
--- NOTE | 2021-05-11 17:49 | NUR ---
PT BROUGHT CPAP MACHINE
--- NOTE | 2021-05-11 20:00 | NUR ---
ASSUMED CARE OF PT AT 1915. REPORT RECEIVED AT BEDSIDE. PT PRESENTS IN BED WEARING HOSPITAL CPAP. PT TOLERATING THIS FAIR. DISCUSSED WITH DR LAZARO PLAN OF CARE FOR THIS PT. HAVE RECEIVED ORDER TO INCREASE PRECEDEX NEEDED TO 1.4 MCG'S NEEDED.
--- NOTE | 2021-05-12 | NUR ---
HAVE STOPPED COMPLIANCE PROFESSIONAL EARLIER IN SHIFT PER ORDERS. HAVE GIVEN PRN DOSE OF FENTANYL. PT VERY ACTIVE. IS ABLE TO TURN HIMSELF IN BED NEARLY TO HIS STOMACH EVEN WITH SOFT RESTRAINTS ON. HAS BEEN ABLE TO GET HIS CARDIAC LEADS DISLODGED DURING HIS MOVEMENTS. PULLS AT RESTRAINTS. REMAINS CONFUSED. DOES SOME CUSSING. DOES NOT BECOME VERBALLY AGRESSIVE. WILL CONTINUE TO MONITOR.
[2021-05-12 02:59] LABS: Source, Urine Catheter
[2021-05-12 03:01] LABS: Bilirubin, Urine Neg (Neg); Blood, Urine 5+ (Neg); Glucose Qualitative, Urine Neg (Neg); Ketones, Urine 3+ (Neg); Leukocyte Esterase, Urine 3+ (Neg); Nitrite, Urine Neg (Neg); Protein, Urine 3+ (Neg); Urobilinogen, Urine 1+ (Normal); pH, Urine 6.5 (5.0-8.0)
[2021-05-12 03:08] LABS: Appearance, Urine Cloudy (Clear); Color, Urine Amber (P-Yellow)
[2021-05-12 03:09] LABS: Bacteria Mod /hpf; Red Blood Cells, Urine TNTC /hpf (0-2); Squamous Epithelial Cells Few /hpf (Few)
[2021-05-12 04:40] LABS: BASOPHILS ABSOLUTE AUTO 0.09 K/mm3 (0.00-0.23); BASOPHILS PERCENT AUTO 1 % (0-2); EOSINOPHILS ABSOLUTE AUTO 0.06 K/mm3 (0.00-0.68); EOSINOPHILS PERCENT AUTO 1 % (0-6); Hematocrit 27.9 % (37.0-53.0); Hemoglobin 9.5 g/dL (13.5-17.5); IMMATURE GRAN PERCENT AUTO 1 % (0-1); LYMPHOCYTES ABSOLUTE AUTO 2.02 K/mm3 (0.84-5.20); LYMPHOCYTES PERCENT AUTO 18 % (21-46); MONOCYTES ABSOLUTE AUTO 1.01 K/mm3 (0.16-1.47); MONOCYTES PERCENT AUTO 9 % (4-13); Mean Corpuscular HGB 29.2 pg (26.0-34.0); Mean Corpuscular HGB Conc 34.1 g/dL (31.5-36.5); Mean Corpuscular Volume 86 fL (80-100); NEUTROPHILS ABSOLUTE AUTO 7.69 K/mm3 (1.96-9.15); NEUTROPHILS PERCENT AUTO 70 % (41-73); Platelet Count 164 K/mm3 (150-400); Red Blood Cell Count 3.25 M/mm3 (4.30-5.90); White Blood Cell Count 10.97 K/mm3 (4.00-11.30)
[2021-05-12 05:00] LABS: Alanine Aminotransfer (ALT/SGP 16 U/L (12-78); Albumin, Blood 2.4 g/dL (3.4-5.0); Albumin/Globulin Ratio 0.6 (0.8-1.8); Alk Phos 60 U/L (50-136); Anion Gap 5 mmol/L (6-16); Aspartate Aminotrans (AST/SGOT 59 U/L (12-37); Bilirubin, Total 0.8 mg/dL (0.1-1.0); Blood Urea Nitrogen 11 mg/dL (8-24); Bun/Creatinine Ratio 11.5 (12.0-20.0); CO2, Blood 28 mmol/L (21-32); Chloride, Blood 107 mmol/L (98-108); Creatinine, Blood 0.96 mg/dL (0.60-1.20); Globulin, Blood 4.1 g/dL (2.2-4.0); Glomerular Filtration Rate >60 (60-); Glucose, Blood 111 mg/dL (70-99); Magnesium, Blood 2.2 mg/dL (1.6-2.4); Phosphorus, Blood 1.6 mg/dL (2.5-4.9); Potassium, Blood 2.9 mmol/L (3.5-5.5); Sodium, Blood 140 mmol/L (136-145); Total Protein, Blood 6.5 g/dL (6.4-8.2)
--- NOTE | 2021-05-12 06:30 | NUR ---
HAVE CALLED DR LAZARO CONCERNING PT'S CONTINUED AGITATION AND PULLING AT LINES. HALDOL WAS GIVEN. ONE DOSE GIVEN WHICH HAS IMPROVED PT SOMEWHAT. HE WAS ABLE TO USE HIS FOOT TO DISLODGE HIS SALGADO CATHETER. DID PLACE ANOTHER 16 PRYDEINIG TEMP PROBE SALGADO. SECONDARY TO PT TRYING TO GET HIS LEGS OFF BED EVEN WITH UPPER RESTRAINTS, DID PLACE LOWER EXTREMITY RESTRAINTS. PT WEARS HIS HOME CPAP THROUGH THE NIGHT. HAVE SWITCHED PT TO OXYMIZER AT 5 L/M. PT MAINTAINS SATURATIONS > 90 PERCENT. WILL CONTINUE TO MONITOR PT, AND WILL REPORT OFF TO ONCOMING RN.
[2021-05-12 14:32] LABS: Phosphorus, Blood 3.1 mg/dL (2.5-4.9); Potassium, Blood 2.9 mmol/L (3.5-5.5)
--- NOTE | 2021-05-12 17:44 | NUR ---
PT ALERT AND ORIENTED X2, REMAINS IN PRECEDEX 1.4MCG, SINCE AGITATION PERSIST AND HAS MOMENTS OF CONFUSIONS. HEPARIN DRIP @ 24 FAMILY CAME TO VISIT AND WERE ABLE TO COMMUNICATE WITH PATIENT. PT REMAINS UNDER OBSERVATION
[2021-05-13 06:28] LABS: BASOPHILS ABSOLUTE AUTO 0.07 K/mm3 (0.00-0.23); BASOPHILS PERCENT AUTO 1 % (0-2); EOSINOPHILS ABSOLUTE AUTO 0.25 K/mm3 (0.00-0.68); EOSINOPHILS PERCENT AUTO 4 % (0-6); Hematocrit 29.5 % (37.0-53.0); Hemoglobin 9.9 g/dL (13.5-17.5); IMMATURE GRAN ABSOLUTE AUTO 0.06 K/mm3 (0.00-0.10); IMMATURE GRAN PERCENT AUTO 1 % (0-1); LYMPHOCYTES ABSOLUTE AUTO 1.38 K/mm3 (0.84-5.20); LYMPHOCYTES PERCENT AUTO 20 % (21-46); MONOCYTES ABSOLUTE AUTO 0.75 K/mm3 (0.16-1.47); MONOCYTES PERCENT AUTO 11 % (4-13); Mean Corpuscular HGB 28.5 pg (26.0-34.0); Mean Corpuscular HGB Conc 33.6 g/dL (31.5-36.5); Mean Corpuscular Volume 85 fL (80-100); Mean Platelet Volume 10.2 fL (9.1-12.4); NEUTROPHILS ABSOLUTE AUTO 4.27 K/mm3 (1.96-9.15); NEUTROPHILS PERCENT AUTO 63 % (41-73); Platelet Count 178 K/mm3 (150-400); RDW Coefficient Variation 13.6 % (11.7-14.2); RDW Standard Deviation 41.7 fL (35.1-46.3); Red Blood Cell Count 3.47 M/mm3 (4.30-5.90); White Blood Cell Count 6.78 K/mm3 (4.00-11.30)
[2021-05-13 06:42] LABS: Anion Gap 7 mmol/L (6-16); Blood Urea Nitrogen 10 mg/dL (8-24); Bun/Creatinine Ratio 14.4 (12.0-20.0); CO2, Blood 29 mmol/L (21-32); Chloride, Blood 102 mmol/L (98-108); Glomerular Filtration Rate >60 (60-); Glucose, Blood 104 mg/dL (70-99); Magnesium, Blood 2.3 mg/dL (1.6-2.4); Phosphorus, Blood 3.1 mg/dL (2.5-4.9); Potassium, Blood 2.8 mmol/L (3.5-5.5); Sodium, Blood 138 mmol/L (136-145)
--- NOTE | 2021-05-13 12:13 | NUR ---
PATIENT HAS BEEN OFF RESTRAINTS SINCE 999 WHICH HAS BEEN VERY COMPLAINT AND FOLLOWING ORDERS
--- NOTE | 2021-05-13 16:47 | NUR ---
DELAYED IN PATIENT DISCHARGE, WAITING ON AMBULANCE TO COME ([facility]) PHONE NUMBER [phone]
--- NOTE | 2021-05-13 17:14 | NUR ---
PT DIDNT RECEIVE HIS IVIG, CHARGE NURSE JINNY NOWAK AWARE, WHICH THIS MORNING WE COMMUNICATED WITH THE TEAM AND STATED THEY WILL PASS BY, OF YESTERDAY ALSO CHARGE NURSE MARITZA CALLED.
--- NOTE | 2021-05-13 17:26 | NUR ---
Per chart review, pt. continues to make progress. Disposition unknown at this time. PT/OT recommending HH and front wheeled walker. Potential need for SNF dependent upon patient's progress. Pt. lives with his and two adult sons. Strong family support system. Anticipate needs at time of discharge to include: HH referral, walker, hospital F/U within 5-7 days post discharge. Plan to discuss further with patient's tomorrow.
--- NOTE | 2021-05-13 18:44 | NUR ---
PT STABLE REMAINS IN OXYGEN AT 3LTS AND PRECEDEX AT 1MCG, HEPARIN 22.5. FAMILY CAME TO VISIT AND WERE ABLE TO BE PRESENT TO SEE PATIENT WALKING AND DOING MOVEMENT WITH OCCUPATIONAL THERAPY/PHYSICAL THERAPY. NO DISTRESS
--- NOTE | 2021-05-13 19:30 | NUR ---
ASSUMED CARE PATIENT LYING IN BED SLEEPING; OPENS EYES WHEN STAFF ENTERS THE ROOM AND TRACKS. NC IN PLACE W/ 2LPM AND SPO2 @ 99-100%. HOME CPAP MACHINE IS SITTING ON BEDSIDE TABLE, NOT CURRENTLY IN USE. PRECEDEX IS INF @ 1MCG/KG/HR AND HEPARIN @ 22.5UNITS/KG/HR. CENTRAL LINE TO RT IJ W/ DRESSING C/D/I. PATIENT HAS [address] IV'S IN PL[address]; ONE IN EACH AC. BEDSIDE REPORT COMPLETED W/ DAYSHIFT RN.
[2021-05-14 04:34] LABS: BASOPHILS ABSOLUTE AUTO 0.05 K/mm3 (0.00-0.23); BASOPHILS PERCENT AUTO 1 % (0-2); EOSINOPHILS PERCENT AUTO 3 % (0-6); Hematocrit 29.7 % (37.0-53.0); Hemoglobin 10.1 g/dL (13.5-17.5); IMMATURE GRAN ABSOLUTE AUTO 0.07 K/mm3 (0.00-0.10); IMMATURE GRAN PERCENT AUTO 1 % (0-1); LYMPHOCYTES ABSOLUTE AUTO 1.33 K/mm3 (0.84-5.20); LYMPHOCYTES PERCENT AUTO 23 % (21-46); MONOCYTES ABSOLUTE AUTO 0.72 K/mm3 (0.16-1.47); MONOCYTES PERCENT AUTO 12 % (4-13); Mean Corpuscular HGB 28.7 pg (26.0-34.0); Mean Corpuscular Volume 84 fL (80-100); Mean Platelet Volume 9.8 fL (9.1-12.4); NEUTROPHILS ABSOLUTE AUTO 3.53 K/mm3 (1.96-9.15); NEUTROPHILS PERCENT AUTO 60 % (41-73); Platelet Count 196 K/mm3 (150-400); RDW Coefficient Variation 13.7 % (11.7-14.2); RDW Standard Deviation 41.1 fL (35.1-46.3); Red Blood Cell Count 3.52 M/mm3 (4.30-5.90)
[2021-05-14 04:52] LABS: Albumin, Blood 2.3 g/dL (3.4-5.0); Anion Gap 7 mmol/L (6-16); Blood Urea Nitrogen 9 mg/dL (8-24); Bun/Creatinine Ratio 12.9 (12.0-20.0); CO2, Blood 30 mmol/L (21-32); Calcium, Blood 8.2 mg/dL (8.5-10.1); Chloride, Blood 102 mmol/L (98-108); Glomerular Filtration Rate >60 (60-); Glucose, Blood 99 mg/dL (70-99); Phosphorus, Blood 3.4 mg/dL (2.5-4.9); Potassium, Blood 2.7 mmol/L (3.5-5.5); Sodium, Blood 139 mmol/L (136-145)
--- NOTE | 2021-05-14 06:49 | NUR ---
SHIFT SUMMARY PRECEDEX INCREASED FROM 1 TO 1.1MCG/KG/HR D/T INCREASED ANXIETY REPORTED BY THE PATIENT. PATIENT REMAINED ON CPAP W/ 1LPM BLEED IN THROUGHOUT SHIFT W/ SPO2 IN MID 90'S. PATIENT REMAINED A&O X 4 AND MADE APPROPRIATE USE OF CALL LIGHT. HEPARIN DOSING REMAINED AT 22.5 UNITS/KG/HR.
--- NOTE | 2021-05-14 10:45 | NUR ---
PER DR. BARONE THIS MORNING IN PATIENT ROOM STATED THAT HE WILL LOOK MORE INTO THE IV THERAPY (IVIG). PATIENT ALERT AND ORIENTED
--- NOTE | 2021-05-14 18:40 | NUR ---
PATIENT ALERT AND ORIENTED X3, PATIENT HAS BEEN OFF PRECEDEX FOR 3HRS, PT COMPLAINT, NO DISTRESS, NO AGITATION. SUCCESSFUL PHYSICAL AND OCCUPATIONAL THERAPY.
--- NOTE | 2021-05-14 19:48 | NUR ---
ASSUMED CARE ASSUMED CARE PATIENT LYING IN BED AWAKE AND WATCHING TELEVISION. TRACKS TO SOUND AND MOVEMENT. ASKS AND ANSWERS QUESTIONS APPROPRIATELY. PRECEDEX ON SB AND HEPARIN INF INTO RT FOREARM @ 22.5 UNTIS/KG/HR. PATIENT HAS HOME CPAP, GLASSES CASE, AND CUP OF WATER ON BEDSIDE TABLE; CURRENTLY WEARING GLASSES. TEMP SALGADO PATENT AND DRAINING TO GRAVITY. REPORT COMPLETED WITH DAY SHIFT RN.
[2021-05-15 04:34] LABS: Anion Gap 8 mmol/L (6-16); Blood Urea Nitrogen 7 mg/dL (8-24); Bun/Creatinine Ratio 8.9 (12.0-20.0); CO2, Blood 27 mmol/L (21-32); Calcium, Blood 8.5 mg/dL (8.5-10.1); Chloride, Blood 105 mmol/L (98-108); Creatinine, Blood 0.79 mg/dL (0.60-1.20); Glomerular Filtration Rate >60 (60-); Glucose, Blood 87 mg/dL (70-99); Potassium, Blood 2.9 mmol/L (3.5-5.5); Sodium, Blood 140 mmol/L (136-145)
--- NOTE | 2021-05-15 05:56 | NUR ---
SHIFT SUMMARY NO MAJOR CHANGES DURING SHIFT. PATIENT REMAINED ON CPAP THROUGHOUT MAJORITY OF SHIFT W/ 1LPM O2. HEPARIN DOSING REMAINED AT 22.5 UNITS/KG/HR INF INTO RT AC; LT AC SALINE LOCKED. MORNING LABS SHOWED LOW POTASSIUM; CALL PLACED TO MD AND KCL 20MEQ/100ML X2 ORDERED W/ FIRST BAG STARTED; NOW INFUSING INTO CENTRAL LINE. PATIENT ATTEMPTED ONE BOWEL MOVEMENT USING BEDSIDE COMMODE W/O SUCCESS, ONLY FLATULANCE PASSED. BT HYPERACTIVE AND STILL ON CLEAR LIQUID DIET. TEMP SALGADO PATENT AND DRAINING W/ 2150ML URINE OUT DURING SHIFT.
--- NOTE | 2021-05-15 17:22 | NUR ---
Neuro: AOx4, flat affect, denies pain, complains of nausea most of shift, given 4mg zofran with little relief, additional dose per MD given, one episode emesis. Cardio: NSR/ST 80/100s, +2 pulses, BP HTN as day progress MD aware, nifidipine home med initiated, unable to use hydralazine due to 180 SBP parameter, difficulty given PO meds due to N/V, heparin DC bridged to eliquis 10mg. Resp: Denies SOB, 2l NC continued sats WNL, dim/clear lungs. GI/: Rounded hyperactive bowels, non-tender non-firm, LBM before admit 05/08, given colace, Pt educated on biscodyl, Pt hesitent on taking. Pt made PCU status and transfered to PCU 16 at 1630.
--- NOTE | 2021-05-15 17:30 | NUR ---
Per chart review, pt. continues to make progress. Transitioned from ICU to PCU PT/OT recommending HH and front wheeled walker. Potential need for SNF dependent upon patient's progress. Pt. lives with his and two adult sons. Strong family support system. Anticipate needs at time of discharge to include: HH referral, walker, hospital F/U within 5-7 days post discharge. Plan to contact patient's tomorrow to review discharge plan and discuss needs.
--- NOTE | 2021-05-15 18:05 | NUR ---
SHIFT SUMMARY PT ARRIVED VIA BED FROM ICU, TOLERATED SLIDE TRANSFER WELL. PT HAS FLAT AFFECT AND OFFERS VERY LITTLE VERBAL COMMUNICATION. PT FOLLOWS COMMANDS AND CALLS APPROPRIATELY. PT C/O NAUSEA TREATED PER EMAR. BILATERAL SCDS APPLIED AND ON UPON ARRIVAL. VITAL SIGNS STABLE. NO CHANGES IN CONDITION SINCE ARRIVAL.
[2021-05-16 06:50] LABS: Albumin, Blood 2.5 g/dL (3.4-5.0); Anion Gap 5 mmol/L (6-16); Blood Urea Nitrogen 9 mg/dL (8-24); Bun/Creatinine Ratio 12.3 (12.0-20.0); CO2, Blood 30 mmol/L (21-32); Calcium, Blood 8.7 mg/dL (8.5-10.1); Chloride, Blood 106 mmol/L (98-108); Creatinine, Blood 0.73 mg/dL (0.60-1.20); Glomerular Filtration Rate >60 (60-); Glucose, Blood 104 mg/dL (70-99); Magnesium, Blood 2.3 mg/dL (1.6-2.4); Phosphorus, Blood 3.2 mg/dL (2.5-4.9); Sodium, Blood 141 mmol/L (136-145)
--- NOTE | 2021-05-16 10:29 | NUR ---
SLAGADO CATHETER WAS REMOVED BY RETAIL RESET MERCHANDISER SUPERVISED BY INSTRUCTOR. PT TOLERATED WELL, THERE WAS NO EVIDENCE OF INJURY OR IRRITATION. BALDO CARE WAS ALSO PERFORMED.
--- NOTE | 2021-05-16 13:13 | NUR ---
SPOKE WITH DIETITIANREJI PER NUTRITION RECCOMENDATIONS.
--- NOTE | 2021-05-16 17:41 | NUR ---
SHIFT SUMMARY PT HAS BEEN RESTING IN BED TODAY. PT HAS DENIED ANY C/O NAUSEA, PAIN, OR SOB. PT'S FAMILY MEMBER EXPRESSED CONCERNS THAT WERE ADDRESSED BY THIS RN AND THE PROVIDER. THIS AM WHILE THE PT WAS ASLEEP, SEVERAL APNEIC EPISODES WERE WITNESSED AND PRODUCED SpO2 DIPS TO THE LOW 80%'S, PT RECOVERED QUICKLY AND WAS CORRECTED WITH REPOSITIONING.
[2021-05-17 04:45] LABS: Albumin, Blood 2.4 g/dL (3.4-5.0); Anion Gap 3 mmol/L (6-16); Blood Urea Nitrogen 11 mg/dL (8-24); CO2, Blood 33 mmol/L (21-32); Calcium, Blood 8.4 mg/dL (8.5-10.1); Chloride, Blood 103 mmol/L (98-108); Creatinine, Blood 0.78 mg/dL (0.60-1.20); Glomerular Filtration Rate >60 (60-); Glucose, Blood 143 mg/dL (70-99); Magnesium, Blood 2.3 mg/dL (1.6-2.4); Phosphorus, Blood 2.6 mg/dL (2.5-4.9); Potassium, Blood 2.9 mmol/L (3.5-5.5); Sodium, Blood 139 mmol/L (136-145)
--- NOTE | 2021-05-17 06:20 | NUR ---
LYING IN SUPINE WITH CPAP ON AND OPERATIONAL. HAS RESTED WELL THIS SHIFT. PLEASANT AND COOPERATIVE WITH CARE, APPEARS TO BE IN GOOD HUMOR. AAO X4, RASCON, FOLLOWS ALL COMMANDS. BUT IS SLOW TO RESPOND, GIVEN ENOUGH TIME IS ABLE TO COMPLETE TASKS. DENIES FURTHER NEEDS OR WANTS AT THIS TIME. SAFETY MEASURES IN PLACE. WILL CONTINUE TO MONITOR AND GIVE HAND OFF TO ONCOMING SHIFT USING SBAR DURING BEDSIDE REPORT.
--- NOTE | 2021-05-17 10:44 | NUR ---
PT ALERT AND ORIENTED X4. PERRLA. EQUAL SUPPLY CHAIN CONSULTANT STRENGTH. ABLE TO MOVE ALL EXTREMITIES. OVERALL WEAK. ON ROOM AIR SATING MID 90'S. WORE CPAP LAST NIGHT WITH 2L BLEED IN. LUNGS SOUNDING CLEAR. INCENTIVE SPIROMETER PROVIDED AND EDUCATION GIVEN. PATIENT USING AT THIS TIME. TELE SHOWING SINUS RHYTHM WITH HR 90'S. DENIES CHEST PAIN/PRESSURE. USING URINAL AT BEDSIDE. STOOL SOFTNERS GIVEN THIS AM, PT REPORTS NO BM IN DAYS. DR. BARONE IN THIS AM. PLAN TO DISCHARGE. CALL LIGHT IN REACH. WILL CONTINUE TO MONITOR.
[2021-05-17] MEDS ORDERED: NIFE30ER PO (12:17)
[2021-05-17] MEDS ORDERED: ELIQUIS5 M2 PO (12:18)
[2021-05-17] MEDS ORDERED: ELIQUIS5 M3 PO (12:21)
[2021-05-17] MEDS ORDERED: POTCHL20ER PO (12:24)
--- NOTE | 2021-05-17 12:49 | NUR ---
Per chart review with Dr. Lira, pt. appropriate for discharge today. Pt. has strong family support. Lives with and two adult sons. PT/OT recommending HH and use of walker. Pt. states that he has a walker at home. Denied needs for any additional DME. [facility] team will call pt. within 24-48 hours post discharge to schedule a F/U appointment. Pt. denied any barriers to discharge or concerns with safety.
--- NOTE | 2021-05-17 15:02 | NUR ---
DISCHARGE: DISCHARGE WNL. IVS AND CENTRAL LINE REMOVED, WNL. DISCHARGE INSTRUCTIONS REVIEWED AND QUESTIONS ANSWERED. NO ACUTE CHANGES. SEE PREVIOUS NOTE. VOIDING WELL. PT IN TO WORK WITH PATIENT. IN TO HOSPITAL COORDINATOR. PATIENT LEFT UNIT VIA WHEELCHAIR WITH ALL PERSONAL BELONGINGS.
== END 2021-05-17 14:30 | disposition home or self-care (01) | DRG 163 ==
LOC: ER 17:33 → ICUW 17:34 → PCU 05-15 16:26
PROVIDERS: Emergency Medicine; Family Medicine; Internal Medicine Critical Care Medicine; Pharmacist; ADMIT Internal Medicine
PROC: 5A1945Z Respiratory Ventilation, 24-96 Consecutive Hours (ICD-10-PCS; 2021-05-08)
PROC: 5A2204Z Restoration of Cardiac Rhythm, Single (ICD-10-PCS; 2021-05-08)
PROC: 0BH17EZ Insertion of Endotracheal Airway into Trachea, Via Natural or Artificial Opening (ICD-10-PCS; 2021-05-08)
PROC: 3E033XZ Introduction of Vasopressor into Peripheral Vein, Percutaneous Approach (ICD-10-PCS; 2021-05-08)
PROC: 02CR3ZZ Extirpation of Matter from Left Pulmonary Artery, Percutaneous Approach (ICD-10-PCS; principal; 2021-05-09)
PROC: 02CQ3ZZ Extirpation of Matter from Right Pulmonary Artery, Percutaneous Approach (ICD-10-PCS; 2021-05-09)
PROC: 02HR33Z Insertion of Infusion Device into Left Pulmonary Artery, Percutaneous Approach (ICD-10-PCS; 2021-05-09)
PROC: 02HQ33Z Insertion of Infusion Device into Right Pulmonary Artery, Percutaneous Approach (ICD-10-PCS; 2021-05-09)
PROC: 3E06317 Introduction of Other Thrombolytic into Central Artery, Percutaneous Approach (ICD-10-PCS; 2021-05-09)
PROC: B5191ZZ Fluoroscopy of Inferior Vena Cava using Low Osmolar Contrast (ICD-10-PCS; 2021-05-09)
PROC: 05HM33Z Insertion of Infusion Device into Right Internal Jugular Vein, Percutaneous Approach (ICD-10-PCS; 2021-05-09)
PROC: 3E02340 Introduction of Influenza Vaccine into Muscle, Percutaneous Approach (ICD-10-PCS; 2021-05-11)
PROC: 5A09357 Assistance with Respiratory Ventilation, Less than 24 Consecutive Hours, Continuous Positive Airway Pressure (ICD-10-PCS; 2021-05-14)
DX: I26.92 Saddle embolus of pulmonary artery without acute cor pulmonale (principal); J96.01 Acute respiratory failure with hypoxia; R57.8 Other shock; G92.9 Unspecified toxic encephalopathy; J96.02 Acute respiratory failure with hypercapnia; E87.2 Acidosis; I47.1 Supraventricular tachycardia; Z20.822 Contact with and (suspected) exposure to COVID-19; I48.91 Unspecified atrial fibrillation; Z23 Encounter for immunization; E87.6 Hypokalemia; Z78.1 Physical restraint status; I10 Essential (primary) hypertension; R73.03 Prediabetes; F32.9 Major depressive disorder, single episode, unspecified; G47.33 Obstructive sleep apnea (adult) (pediatric); J45.909 Unspecified asthma, uncomplicated; E03.9 Hypothyroidism, unspecified; K21.9 Gastro-esophageal reflux disease without esophagitis; F41.9 Anxiety disorder, unspecified; E78.5 Hyperlipidemia, unspecified; Z98.890 Other specified postprocedural states; Z88.1 Allergy status to other antibiotic agents; Z88.8 Allergy status to other drugs, medicaments and biological substances; Z79.899 Other long term (current) drug therapy
CPT/HCPCS: 0241U; 36415; 36556; 36600; 51702; 70450; 71045; 71260; 76937; 80047; 80048; 80053; 80069; 80202; 81001; 82803; 82947; 83605; 83735; 83880; 84100; 84132; 84145; 84443; 84484; 85014; 85025; 85379; 85384; 85610; 85730; 87040; 87070; 87086; 87205; 90686; 92960; 93005; 93010; 93970; 94003; 94640; 94660; 94762; 96365; 96366; 96367; 96368; 96375; 96376; 97110; 97116; 97162; 97166; 97530; 97535; 99291-25; A9270; C1751; C1757; C1760; C1769; C1887; C1894; C8929; C9113; G0378; G0480; J0282; J0696; J0780; J1630; J1644; J1940; J2060; J2405; J2704; J2997; J3010; J3370; J3475; J3480; J7030; J7040; J7050; J7060; Q9957; Q9967

== ENCOUNTER 2021-08-07 01:10 | Day surgery (SDC) | payer OTHER, MEDICARE ==
[~2021-08-07 01:10] MED LIST changes: +DEPO-TESTO200 MG/1 M; +ELIQUIS5 M2 PO; +ELIQUIS5 M3 PO; +MIRT30 PO; +NAPROXEN500 MG PO; +NIFE30ER PO; +Nexium40 MG PO; +POTCHL20ER PO
== END 2021-08-07 17:30 | disposition home or self-care (01) ==
LOC: ATC 01:10
DX: G58.7 Mononeuritis multiplex (principal); I10 Essential (primary) hypertension; R73.03 Prediabetes; E78.00 Pure hypercholesterolemia, unspecified
CPT/HCPCS: A9270; J1100; J1568; J1569

== ENCOUNTER 2021-09-04 00:36 | Day surgery (SDC) | payer OTHER, MEDICARE | END 2021-09-04 17:25 | disposition home or self-care (01) | LOC: ATC 00:36 | DX: G58.7 Mononeuritis multiplex (principal); I10 Essential (primary) hypertension; R73.03 Prediabetes; I48.91 Unspecified atrial fibrillation | CPT/HCPCS: A9270 ==

== ENCOUNTER 2021-10-01 03:19 | Day surgery (SDC) | payer OTHER, MEDICARE | END 2021-10-01 17:40 | disposition home or self-care (01) | LOC: ATC 03:19 | DX: G58.7 Mononeuritis multiplex (principal); I10 Essential (primary) hypertension; I48.91 Unspecified atrial fibrillation; Z88.8 Allergy status to other drugs, medicaments and biological substances; Z88.1 Allergy status to other antibiotic agents | CPT/HCPCS: A9270; J1100 ==

== ENCOUNTER 2021-10-30 02:55 | Day surgery (SDC) | payer OTHER, MEDICARE | END 2021-10-30 23:15 | disposition home or self-care (01) | LOC: ATC 02:55 | DX: G58.7 Mononeuritis multiplex (principal) ==

== ENCOUNTER 2021-11-05 00:46 | Day surgery (SDC) | payer OTHER, MEDICARE | END 2021-11-05 17:04 | disposition home or self-care (01) | LOC: ATC 00:46 | DX: G58.7 Mononeuritis multiplex (principal); I10 Essential (primary) hypertension; I48.91 Unspecified atrial fibrillation | CPT/HCPCS: A9270; J1100 ==

== ENCOUNTER 2021-12-04 00:55 | Day surgery (SDC) | payer OTHER, MEDICARE ==
[~2021-12-04] VITALS: Wt 120.5 kg
== END 2021-12-04 17:15 | disposition home or self-care (01) ==
LOC: ATC 00:55
DX: G58.7 Mononeuritis multiplex (principal); I10 Essential (primary) hypertension; E78.00 Pure hypercholesterolemia, unspecified
CPT/HCPCS: 96365; 96366; 96375; A9270; J1100

== ENCOUNTER 2022-01-08 01:24 | Day surgery (SDC) | payer OTHER, MEDICARE ==
[~2022-01-08] VITALS: Wt 121.8 kg
== END 2022-01-08 16:50 | disposition home or self-care (01) ==
LOC: ATC 01:24
DX: G58.7 Mononeuritis multiplex (principal)
CPT/HCPCS: 96365; 96366; A9270

== ENCOUNTER 2022-02-12 13:37 | Day surgery (SDC) | payer OTHER, MEDICARE | END 2022-02-12 17:21 | disposition home or self-care (01) | LOC: ATC 13:37 | DX: G58.7 Mononeuritis multiplex (principal) | CPT/HCPCS: 96365; 96366; A9270 ==

== ENCOUNTER 2022-03-19 06:21 | Day surgery (SDC) | payer OTHER, MEDICARE | END 2022-03-19 16:52 | disposition home or self-care (01) | LOC: ATC 06:21 | DX: I26.92 Saddle embolus of pulmonary artery without acute cor pulmonale (principal); E87.4 Mixed disorder of acid-base balance; I48.91 Unspecified atrial fibrillation | CPT/HCPCS: 96365; 96366; A9270 ==

== ENCOUNTER 2022-04-16 02:15 | Day surgery (SDC) | payer OTHER, MEDICARE ==
[~2022-04-16] VITALS: Wt 125.5 kg
[2022-04-16] MEDS ORDERED: VENL37.5 PO (17:09)
== END 2022-04-16 17:00 | disposition home or self-care (01) ==
LOC: ATC 02:15
DX: G58.7 Mononeuritis multiplex (principal); I10 Essential (primary) hypertension; E78.00 Pure hypercholesterolemia, unspecified; I48.91 Unspecified atrial fibrillation
CPT/HCPCS: A9270

== ENCOUNTER 2022-05-14 02:30 | Day surgery (SDC) | payer OTHER, MEDICARE ==
[~2022-05-14 02:30] MED LIST changes: +VENL37.5 PO
--- NOTE | 2022-05-14 13:10 | NUR ---
PT CALLED AND CANCELLED HIS APPOINTMENT FOR TODAY.
== END 2022-05-14 23:43 | disposition home or self-care (01) ==
LOC: ATC 02:30
DX: G58.7 Mononeuritis multiplex (principal); I10 Essential (primary) hypertension; J45.909 Unspecified asthma, uncomplicated; G47.33 Obstructive sleep apnea (adult) (pediatric); Z79.899 Other long term (current) drug therapy; Z88.8 Allergy status to other drugs, medicaments and biological substances; Z88.1 Allergy status to other antibiotic agents
CPT/HCPCS: A9270

== ENCOUNTER 2022-05-21 02:41 | Day surgery (SDC) | payer OTHER, MEDICARE ==
[~2022-05-21] VITALS: Wt 125.0 kg
== END 2022-05-21 17:02 | disposition home or self-care (01) ==
LOC: ATC 02:41
DX: G58.7 Mononeuritis multiplex (principal); Z79.899 Other long term (current) drug therapy
CPT/HCPCS: 96365; 96366; A9270

== ENCOUNTER 2022-06-25 00:21 | Day surgery (SDC) | payer OTHER, MEDICARE | END 2022-06-25 16:54 | disposition home or self-care (01) | LOC: ATC 00:21 | DX: G58.7 Mononeuritis multiplex (principal); F32.A Depression, unspecified; I10 Essential (primary) hypertension; J45.909 Unspecified asthma, uncomplicated | CPT/HCPCS: 96365; 96366; A9270 ==

== ENCOUNTER 2022-08-22 00:24 | Day surgery (SDC) | payer MEDICARE, OTHER | END 2022-08-22 16:50 | disposition home or self-care (01) | LOC: ATC 00:24 | DX: G58.7 Mononeuritis multiplex (principal) | CPT/HCPCS: A9270; J1569 ==

== ENCOUNTER 2023-06-25 01:59 | Emergency (ER) | payer MEDICARE, OTHER ==
[~2023-06-25] VITALS: Ht 188 cm; Wt 108.9 kg
[2023-06-25 02:15] LABS: BASOPHILS ABSOLUTE AUTO 0.09 K/mm3 (0.00-0.23); BASOPHILS PERCENT AUTO 0 % (0-2); EOSINOPHILS ABSOLUTE AUTO 0.02 K/mm3 (0.00-0.68); EOSINOPHILS PERCENT AUTO 0 % (0-6); Hematocrit 49.7 % (37.0-53.0); Hemoglobin 17.3 g/dL (13.5-17.5); IMMATURE GRAN ABSOLUTE AUTO 0.11 K/mm3 (0.00-0.10); IMMATURE GRAN PERCENT AUTO 1 % (0-1); LYMPHOCYTES ABSOLUTE AUTO 3.25 K/mm3 (0.84-5.20); LYMPHOCYTES PERCENT AUTO 16 % (21-46); MONOCYTES ABSOLUTE AUTO 1.66 K/mm3 (0.16-1.47); MONOCYTES PERCENT AUTO 8 % (4-13); Mean Corpuscular HGB 29.3 pg (26.0-34.0); Mean Corpuscular HGB Conc 34.8 g/dL (31.5-36.5); Mean Corpuscular Volume 84 fL (80-100); NEUTROPHILS ABSOLUTE AUTO 15.77 K/mm3 (1.96-9.15); NEUTROPHILS PERCENT AUTO 76 % (41-73); Platelet Count 329 K/mm3 (150-400); RDW Coefficient Variation 14.6 % (11.7-14.2); RDW Standard Deviation 44.2 fL (35.1-46.3); Red Blood Cell Count 5.91 M/mm3 (4.30-5.90)
[2023-06-25 02:46] LABS: Alanine Aminotransfer (ALT/SGP 194 U/L (12-78); Albumin, Blood 3.9 g/dL (3.4-5.0); Albumin/Globulin Ratio 0.8 (0.8-1.8); Alk Phos 78 U/L (50-136); Anion Gap 15 mmol/L (6-16); Aspartate Aminotrans (AST/SGOT 579 U/L (12-37); Bilirubin, Total 2.5 mg/dL (0.1-1.0); Blood Urea Nitrogen 19 mg/dL (8-24); CO2, Blood 23 mmol/L (21-32); Calcium, Blood 9.7 mg/dL (8.5-10.1); Chloride, Blood 102 mmol/L (98-108); Creatinine, Blood 0.95 mg/dL (0.60-1.20); Globulin, Blood 4.9 g/dL (2.2-4.0); Glomerular Filtration Rate 86 (60-); Glucose, Blood 195 mg/dL (70-99); Potassium, Blood 3.4 mmol/L (3.5-5.5); Sodium, Blood 140 mmol/L (136-145); Total Protein, Blood 8.8 g/dL (6.4-8.2)
[2023-06-25 03:41] LABS: Magnesium, Blood 2.2 mg/dL (1.6-2.4); Phosphorus, Blood 2.8 mg/dL (2.5-4.9); Thyroid Stimulating Hormone 0.346 uIU/mL (0.360-4.800)
[2023-06-25 04:19] LABS: Influenza A, PCR NEGATIVE (NEGATIVE); Influenza B, PCR NEGATIVE (NEGATIVE); Resp Syncytial Virus, PCR NEGATIVE (NEGATIVE); SARS-Cov-2 (COVID-19) PCR, MMC NEGATIVE (NEGATIVE)
[2023-06-25 07:46] LABS: Source, Urine Clean Catch
[2023-06-25 07:53] LABS: Bilirubin, Urine Neg (Neg); Blood, Urine 1+ (Neg); Color, Urine Yellow (P-Yellow); Glucose Qualitative, Urine 1+ (Neg); Ketones, Urine 3+ (Neg); Leukocyte Esterase, Urine Neg (Neg); Nitrite, Urine Neg (Neg); Protein, Urine 1+ (Neg); Specific Gravity, Urine 1.015 (1.003-1.022); Urobilinogen, Urine NORM (Normal)
[2023-06-25 08:02] LABS: Appearance, Urine Hazy (Clear)
[2023-06-25 08:06] LABS: Bacteria Rare /hpf; Squamous Epithelial Cells Rare /hpf (Few)
[2023-06-25 09:00] VITALS: BP 190/102
== END 2023-06-25 10:30 | disposition short-term general hospital (02) ==
LOC: ER 01:59
PROVIDERS: Emergency Medicine
DX: A41.9 Sepsis, unspecified organism (principal); R65.20 Severe sepsis without septic shock; K85.90 Acute pancreatitis without necrosis or infection, unspecified; R74.01 Elevation of levels of liver transaminase levels; Z88.8 Allergy status to other drugs, medicaments and biological substances; Z88.1 Allergy status to other antibiotic agents; Z79.899 Other long term (current) drug therapy; I10 Essential (primary) hypertension; E78.00 Pure hypercholesterolemia, unspecified
CPT/HCPCS: 0241U; 74177; 76705; 80053; 81001; 83605; 83690; 83735; 84100; 84443; 85025; 93005; 93010; 96361; 96374-59; 96375; 96376; 99285-25; J0780; J1170; J1200; J1790; J2270; J3010; J7030; J7120; Q9967

== ENCOUNTER → 2023-09-10 | Outpatient (CLI) | payer MEDICARE, OTHER ==
[2023-09-10 17:32] LABS: Hematocrit 33.9 % (37.0-53.0); Hemoglobin 10.6 g/dL (13.5-17.5); Mean Corpuscular HGB 24.8 pg (26.0-34.0); Mean Corpuscular HGB Conc 31.3 g/dL (31.5-36.5); Mean Corpuscular Volume 79 fL (80-100); Mean Platelet Volume 10.8 fL (9.1-12.4); Platelet Count 422 K/mm3 (150-400); RDW Coefficient Variation 14.8 % (11.7-14.2); RDW Standard Deviation 42.8 fL (35.1-46.3); Red Blood Cell Count 4.28 M/mm3 (4.30-5.90); White Blood Cell Count 8.17 K/mm3 (4.00-11.30)
[2023-09-10 17:49] LABS: Albumin, Blood 2.4 g/dL (3.4-5.0); Albumin/Globulin Ratio 0.3 (0.8-1.8); Bilirubin, Total 0.6 mg/dL (0.1-1.0); Bun/Creatinine Ratio 19.9 (12.0-20.0); Calcium, Blood 9.1 mg/dL (8.5-10.1); Creatinine, Blood 0.65 mg/dL (0.60-1.20); Potassium, Blood 4.2 mmol/L (3.5-5.5); Total Protein, Blood 9.4 g/dL (6.4-8.2)
== END | disposition home or self-care (01) ==
LOC: LAB SHORT 15:21
PROVIDERS: Family Medicine
DX: Z13.6 Encounter for screening for cardiovascular disorders (principal); E11.65 Type 2 diabetes mellitus with hyperglycemia; K86.3 Pseudocyst of pancreas
CPT/HCPCS: 80053; 82150; 83036; 83690; 85027